=== PATIENT | male | born 1980 | race Caucasian/White ===

== ENCOUNTER 2021-04-20 12:42 | Emergency (ER) | payer OTHER ==
[2021-04-20 13:50] LABS: BASOPHIL 1.3 % (0-2); EOSINOPHIL 2.2 % (0-5); HGB 16.6 g/dl (13.2-18.0); LYMPHOCYTE 27.7 % (15-48); MCH 32.3 pg (25.0-31.0); MCHC 36.1 g/dL (32.0-36.0); MCV 89.5 fL (78.0-100.0); MONOCYTE 7.7 % (0-12); NEUTROPHIL 60.1 % (41-80); NRBC 0; PLT 259 K/uL (150-400); RBC 5.14 M/uL (4.70-6.00); RDW 11.5 % (11.5-14.0); WBC 8.4 K/uL (4.0-10.5)
[2021-04-20 14:42] LABS: ALBUMIN 4.2 g/dL (3.4-5.0); BILIRUBIN - TOTAL 0.7 mg/dL (0.2-1.0); BUN/CREAT RATIO (CALC) 17.8 RATIO; CREATININE 1.01 mg/dL (0.67-1.17); GLOBULIN (CALCULATION) 3.3 g/dL; POTASSIUM 4.3 mmol/L (3.5-5.1); TOTAL PROTEIN 7.5 g/dL (6.4-8.2)
[2021-04-20] MEDS ORDERED: NAPROXEN500 MG PO (16:49)
[2021-04-20] MEDS ORDERED: BACLOFEN 10MG T10 MG PO (16:49)
== END 2021-04-20 17:19 | disposition home or self-care (01) ==
LOC: FER 12:42
PROVIDERS: Nurse Practitioner Family
DX: R51.9 Headache, unspecified (principal); M25.512 Pain in left shoulder; M54.2 Cervicalgia; M54.9 Dorsalgia, unspecified; R07.9 Chest pain, unspecified; M25.561 Pain in right knee; V43.52XA Car driver injured in collision with other type car in traffic accident, initial encounter
CPT/HCPCS: 36415; 70450; 71260; 72125; 80053; 84484; 85025; 93005; 96372; J1100; J1885; Q9967